=== PATIENT | female | born 1955 | race Caucasian/White ===

== ENCOUNTER 2021-08-25 13:48 | Outpatient (CLI) | payer MEDICARE, OTHER, SELFPAY ==
--- NOTE | ~2021-08-25 | DEXA_ITS ---
Bone Density Report Name: Danial Morel Age: 66 Sex: Female Ethnicity: White Date of : 1955 Indication: postmenopausal; height loss; cancer; Referring Provider: Sania Weber Study: Bone densitometry was performed. Exam Date: August 25, 2021 Accession number: [id number] Bone Density: Region BMD T-score Z-score Classification AP Spine (L1-L4) 1.083 0.3 2.1 Normal Femoral Neck (Left) 0.832 -0.1 1.4 Normal Total Hip (Left) 0.862 -0.7 0.6 Normal Total Hip Bilateral Avg 0.848 -0.8 0.5 Normal Femoral Neck (Right) 0.815 -0.3 1.2 Normal Total Hip (Right) 0.834 -0.9 0.4 Normal World Health Organization criteria for BMD impression classify patients as: Normal (T-score at or above -1.0), Osteopenia (T-score between -1.0 and -2.5), or Osteoporosis (T-score at or below -2.5). 10-year Fracture Risk: FRAX not reported because: All T-scores for Spine Total, Hip Total, Femoral Neck at or above -1.0 Previous Exams: Region Exam Age BMD T-score BMD Change BMD Change Date g/cm2 vs Baseline vs Previous AP Spine(L1-L4) 08/25/2021 66 1.083 0.3 -0.028(-2.5%)* -0.028(-2.5%)* 07/02/2019 64 1.111 0.6 Total Hip(Left) 08/25/2021 66 0.862 -0.7 -0.077(-8.2%)* -0.077(-8.2%)* 07/02/2019 64 0.939 0.0 Total Hip(Right) 08/25/2021 66 0.834 -0.9 -0.007(-0.9%) -0.007(-0.9%) 07/02/2019 64 0.841 -0.8 *Denotes significance at 95% confidence level, LSC for AP Spine = 0.022 g/cm2, LSC for Total Hip = 0.027 g/cm2 Clinical Information Provided by Patient: Has used the following medications: Vitamin D Has the following medical conditions: Cancer Patient maximum height was 65 Menopause Age: 57 Drinks caffeinated beverages Onset of menses at age 11 Number of children 2 Impression: The patient has normal bone mass. The BMD for the AP Spine(L1-L4) decreased, changing by -2.5% since the last DXA exam. The BMD for the Total Hip(Left) decreased, changing by -8.2% since the last DXA exam. Discussion: BONE DENSITY IS ABOVE THE MINIMUM DESIRABLE LEVEL AT ALL SKELETAL SITES TESTED. This patient?s bone mineral density is above the minimum desirable level (T-score -1.0 or better) at all sites measured. The patient should follow a healthful lifestyle (good nutrition with adequate calcium and vitamin D, and appropriate weight-bearing exercise). Follow-Up: Consider repeating this study in 3 to 4 years to reassess this patient's status, or sooner if there is some new
== END 2021-08-25 13:49 | disposition home or self-care (01) ==
LOC: ANHIMG 13:50
PROVIDERS: PCP Student in an Organized Health Care Education/Training Program; Visit Provider Student in an Organized Health Care Education/Training Program
DX: Z78.0 Asymptomatic menopausal state (principal)
CPT/HCPCS: 77080

== ENCOUNTER → 2022-05-08 11:55 | Outpatient (REF) | payer MEDICARE, OTHER, SELFPAY | LOC: ANHLAB 11:55 | PROVIDERS: PCP Student in an Organized Health Care Education/Training Program; Visit Provider Nurse Practitioner | DX: D03.72 Melanoma in situ of left lower limb, including hip (principal) | CPT/HCPCS: 88305 ==

== ENCOUNTER → 2022-05-17 11:53 | Outpatient (REF) | payer MEDICARE, OTHER, SELFPAY | LOC: ANHLAB 11:53 | PROVIDERS: PCP Student in an Organized Health Care Education/Training Program; Visit Provider Nurse Practitioner | DX: D03.72 Melanoma in situ of left lower limb, including hip (principal) | CPT/HCPCS: 88305 ==

== ENCOUNTER 2022-11-13 13:28 | Outpatient (NON) | payer MEDICARE, OTHER, SELFPAY | END 2022-11-13 13:29 | disposition home or self-care (01) | PROVIDERS: PCP Student in an Organized Health Care Education/Training Program; Visit Provider Nurse Practitioner | DX: L94.2 Calcinosis cutis (principal); L82.1 Other seborrheic keratosis; L90.5 Scar conditions and fibrosis of skin; L57.8 Other skin changes due to chronic exposure to nonionizing radiation | CPT/HCPCS: 88305 ==

== ENCOUNTER → 2023-01-24 15:09 | Outpatient (CLI) | payer MEDICARE, OTHER, SELFPAY ==
--- NOTE | ~2023-01-24 | MR_ITS ---
MRI of the lumbar spine Clinical History: Back pain Technique: Axial T2-weighted images, and sagittal T1-weighted, T2-weighted, and T2 fat-sat images wer e acquired. COMPARISON: 08/29/2016 Findings: No acute fracture seen. 4 mm anterolisthesis of L4 over L5 present. 5 mm anterolisthesis of L5 over S1 present. No suspicious bone marrow signal abnormality identified. At L1-L2, there is minimal disc bulge, with advanced facet arthropathy. No spinal canal stenosis or n eural foraminal narrowing. At L2-L3, there is no disc bulge or herniation. There is advanced facet joint degenerative change. No spinal canal stenosis or definite neural foraminal narrowing. At L3-L4, there is minimal disc bulge with facet arthropathy. There is minimal central canal stenosis . There is preservation of the bilateral neural foramina. At L4-L5, disc bulge and facet arthropathy result in severe spinal canal stenosis/thecal sac compress ion. There is mild right neural foraminal narrowing and mild to moderate left neural foraminal narrow ing. At L5-S1, there is mild disc bulge with advanced facet arthropathy. No spinal canal stenosis. There i s minimal bilateral neural foraminal narrowing. Paravertebral soft tissues are unremarkable. Impression: Severe spondylosis with associated severe spinal canal stenosis/thecal sac compression at L4-L5, as d etailed above. Mild degenerative changes the remaining lumbar levels, as detailed above. 4 mm anterolisthesis of L4 over L5. 5 mm anterolisthesis of L5 over S1. Reviewed, dictated and finalized at location . Impression: Severe spondylosis with associated severe spinal canal stenosis/thecal sac comp ression at L4-L5, as detailed above. Mild degenerative changes the remaining lumbar levels, as detailed above. 4 mm anterolisthesis of L4 over L5. 5 mm anterolisthesis of L5 over S1.
== END ==
PROVIDERS: PCP Student in an Organized Health Care Education/Training Program
DX: M43.10 Spondylolisthesis, site unspecified (principal); M47.896 Other spondylosis, lumbar region
CPT/HCPCS: 72148

== ENCOUNTER 2024-06-16 01:50 | Day surgery (SDC) | payer MEDICARE, OTHER, SELFPAY ==
[2024-05-27 13:35] VITALS: BMI 31.0
--- NOTE | 2024-06-01 11:38 | SUR.PREOP ---
Spoke with [facility] office staff regarding pre-op antibiotics. Per tank Betts for patient to have Ancef 2gm IV once in pre-op for colonoscopy.
[2024-06-16 06:26] VITALS: BP 161/100; PULSE 70; RESP 18; TEMP 36.2; O2SAT 100; BMI 32.3
[2024-06-16] MEDS: LACTATED RINGERS 1,000 ML 150 ML IV CONT (06:37)
[2024-06-16] MEDS: ceFAZolin 2 GM/D5W 50 ML 2 GM/50 ML BAG IVPB (06:38)
--- NOTE | 2024-06-16 07:27 | WPDANESEPPF ---
Anes - Initial Pre Proc Eval Procedure: Operation Date: 06/16/24 07:30 Proposed Procedures p Screening Colonoscopy - Alfred Freeman DO Date/Time: 06/16/24 07:27 Surgeon: Alfred Freeman DO Pre Op Diagnosis: Screening for malignant neoplasm of colon Patient Data Age: 69 Gender: F Height: 1.63 m Weight: 85.3 kg Last Vital Signs Temp 97.1 F L 06/16/24 06:26 Pulse 70 06/16/24 06:26 Resp 18 06/16/24 06:26 BP 161/100 H 06/16/24 06:26 Pulse Ox 100 06/16/24 06:26 O2 Del Method Room Air 06/16/24 06:26 Allergies Allergy/AdvReac Type Severity Reaction Status Date / Time No Known Allergies Allergy Verified 06/16/24 06:23 Home Medications Medication Instructions Recorded Confirmed Type mecobalamin (vitamin B12) 10,000 10,000 mcg IM [id number] 08/09/22 06/16/24 History mcg solution for injection cholecalciferol (vitamin D3) 1,250 1,250 mcg PO WEEKLY 02/21/24 06/16/24 History mcg (50,000 unit) capsule omega-3 fatty acids 500 mg capsule 500 mg PO DAILY 02/21/24 06/16/24 History losartan 100 1 tablet PO DAILY #90 tabs 04/13/24 06/16/24 Rx mg-hydrochlorothiazide 25 mg tablet Lactobacillus 1 cap PO DAILY 05/27/24 06/16/24 History acidophilus-Bifidobac.animalis 2.5 billion cell capsule (Daily Probiotic) diclofenac sodium 75 mg 75 mg PO DAILY 05/27/24 06/16/24 History tablet,delayed release Patient hx anesthesia problems: none Family hx anesthesia problems: none Results Review: All pre-operative results and documents have been reviewed as part of the pre-operative evaluation. [facility] Past Medical History Medical History Breast cancer Cancer of skin of right lower leg Healthy female History of low-risk melanoma History of vaginal delivery x 2 Hypertension Surgical History Surgical History History of lumpectomy of right breast Status post surgical removal of malignant neoplasm of skin Family History Family History Mother Carcinoma of colon Family history of malignant neoplasm of breast in first degree relative Father Family history of pancreatic cancer Social History Social History Social History: caffeine 4 cups daily coffee Smoking status: Never smoker Second hand tobacco smoke exposure: No Alcohol intake: current Drinks per week: 7 Alcohol use details: WINE WITH DINNER Substance use: never Substance use type: does not use Other substance usage details: Gummy at night for sleep Last use: daily Lack of Transportation: No Lack of Food: Never True Current Housing: I Have Housing Concerned About Future Housing: No Difficulty Paying Gas/Electric Bills: No Difficulty Paying for Meds: No Currently Unemployed: No Education: High School Diploma/GED Difficulty w/ Childcare or Family Care: No Living arrangements: with family Spiritual care concerns: No Anes - Eval Final PreProcedure Day of Procedure 06/16/24 07:27 Patient weight: obese Heart: regular rate and rhythm Lungs: clear to auscultation Airway: Mallampati scale class II Neurological: alert and oriented Last oral intake: >/= 8 hours ASA classification: III Emergent: no Anesthetic plan: proceed Anesthesia type and monitoring: general GIVS and standard monitoring Results Review: All pre-operative results and documents have been reviewed as part of the pre-operative evaluation. Informed Consent: The patient's anesthetic plan and its attendant risks and benefits were discussed with the patient/family/POA. Questions were solicited and answers provided to the satisfaction of the patient/family/POA.
--- NOTE | 2024-06-16 07:31 | PM.IMHP ---
H&P: HPI History of Present Illness Date/Time: 06/16/24 07:31 Chief Complaint: Family history of colon cancer Narrative: this is a 69-year-old woman who presents for colonoscopy. Her last colonoscopy was 5 years ago. She denies any hematochezia or melena. She does have a family history of colon cancer in her mother. Review of Systems Review of Systems: All systems reviewed & are unremarkable except as noted in HPI and below Constitutional: Constitutional: Denies chills, Denies fever(s), Denies headache(s) and Denies weight loss Eyes: Eyes: Denies change in vision ENT: Denies dizziness, Denies headache(s), Denies neck mass and Denies throat swelling Cardiovascular: Cardiovascular: Denies chest pain, Denies lightheadedness and Denies dyspnea Respiratory: Respiratory: Denies cough, Denies dyspnea and Denies wheezing Gastrointestinal: Gastrointestinal: Denies abdominal pain, Denies change in bowel habits, Denies nausea and Denies vomiting Genitourinary: Genitourinary: Denies hematuria and Denies dysuria Musculoskeletal: Musculoskeletal: Reports as per HPI Integumentary/Breasts: Skin/Breast: Reports as per HPI Neurologic: Denies dizziness and Denies headache(s) Allergic/Immunologic: Allergic/Immunologic: Denies throat swelling and Denies wheezing PMFSH Past Medical History Medical History Breast cancer Cancer of skin of right lower leg Healthy female History of low-risk melanoma History of vaginal delivery x 2 Hypertension Surgical History Surgical History History of lumpectomy of right breast Status post surgical removal of malignant neoplasm of skin Family History Family History Mother Carcinoma of colon Family history of malignant neoplasm of breast in first degree relative Father Family history of pancreatic cancer Social History Social History Social History: caffeine 4 cups daily coffee Smoking status: Never smoker Second hand tobacco smoke exposure: No Alcohol intake: current Drinks per week: 7 Alcohol use details: WINE WITH DINNER Substance use: never Substance use type: does not use Other substance usage details: Gummy at night for sleep Last use: daily Lack of Transportation: No Lack of Food: Never True Current Housing: I Have Housing Concerned About Future Housing: No Difficulty Paying Gas/Electric Bills: No Difficulty Paying for Meds: No Currently Unemployed: No Education: High School Diploma/GED Difficulty w/ Childcare or Family Care: No Living arrangements: with family Spiritual care concerns: No Meds Home Medications and Allergies Home Medications Medication Instructions Recorded Confirmed Type mecobalamin (vitamin B12) 10,000 10,000 mcg IM [id number] 08/09/22 06/16/24 History mcg solution for injection cholecalciferol (vitamin D3) 1,250 1,250 mcg PO WEEKLY 02/21/24 06/16/24 History mcg (50,000 unit) capsule omega-3 fatty acids 500 mg capsule 500 mg PO DAILY 02/21/24 06/16/24 History losartan 100 1 tablet PO DAILY #90 tabs 04/13/24 06/16/24 Rx mg-hydrochlorothiazide 25 mg tablet Lactobacillus 1 cap PO DAILY 05/27/24 06/16/24 History acidophilus-Bifidobac.animalis 2.5 billion cell capsule (Daily Probiotic) diclofenac sodium 75 mg 75 mg PO DAILY 05/27/24 06/16/24 History tablet,delayed release Allergies Allergy/AdvReac Type Severity Reaction Status Date / Time No Known Allergies Allergy Verified 06/16/24 06:23 Vital Signs Vital Signs - 24 hr 06/16/24 06:26 Temperature 36.2 C L Pulse Rate 70 Respiratory Rate 18 Blood Pressure 161/100 H Pulse Oximetry 100 Oxygen Delivery Room Air Exam Const: General: no acute distress and alert Orientation/consciousness: patient oriregla
[2024-06-16 07:53] VITALS: BP 142/84; PULSE 61; RESP 21; O2SAT 93
[2024-06-16 08:03] VITALS: BP 134/89; PULSE 72; RESP 21; O2SAT 100
[2024-06-16 08:13] VITALS: BP 151/81; PULSE 62; RESP 18; O2SAT 100
== END 2024-06-16 08:22 | disposition home or self-care (01) ==
PROVIDERS: PCP Family Medicine; Visit Provider Surgery
PROC: 0DJD8ZZ Inspection of Lower Intestinal Tract, Via Natural or Artificial Opening Endoscopic (ICD-10-PCS; CPT 45378; principal; 2024-06-16 07:30)
DX: Z12.11 Encounter for screening for malignant neoplasm of colon (principal); K57.30 Diverticulosis of large intestine without perforation or abscess without bleeding; I10 Essential (primary) hypertension; E66.9 Obesity, unspecified; Z68.32 Body mass index [BMI] 32.0-32.9, adult; Z98.890 Other specified postprocedural states; Z85.3 Personal history of malignant neoplasm of breast; Z85.828 Personal history of other malignant neoplasm of skin; Z80.0 Family history of malignant neoplasm of digestive organs; Z80.3 Family history of malignant neoplasm of breast
CPT/HCPCS: G0105; J0690; J2704; J7120